=== PATIENT | female | born 1980 | race Caucasian/White ===

== ENCOUNTER 2022-09-27 02:42 | Emergency (ER) | payer BC ==
[~2022-09-27] VITALS: Ht 167.6 cm; Wt 79.5 kg
[2022-09-27 02:45] VITALS: BP 127/77
== END 2022-09-27 03:32 | disposition home or self-care (01) ==
LOC: ER 02:42
DX: S60.455A Superficial foreign body of left ring finger, initial encounter (principal); Z88.0 Allergy status to penicillin; Z88.1 Allergy status to other antibiotic agents; Z88.8 Allergy status to other drugs, medicaments and biological substances
CPT/HCPCS: 99284